=== PATIENT | female | born 1995 | race Caucasian/White ===

== ENCOUNTER 2017-04-04 10:40 | Emergency (ER) | payer OTHER ==
[~2017-04-04] VITALS: Ht 157.5 cm; Wt 59.0 kg
[~2017-04-04 10:40] MED LIST: DEPO SHOT; MIRENA1 EACH IY; PREDNISONE20 MG PO; PRENATABS FA T1 EACH PO; TYLENOL325 MG PO; VENTOLIN HFA18 GM INH; ZITHROMAX250 MG PO
[2017-04-04] MEDS ORDERED: CLOTRIMAZOLE AF15 G1 TOP (11:10)
== END 2017-04-04 11:19 | disposition home or self-care (01) ==
LOC: ED 10:40
DX: B35.9 Dermatophytosis, unspecified (principal); J45.909 Unspecified asthma, uncomplicated; F17.200 Nicotine dependence, unspecified, uncomplicated
CPT/HCPCS: 99283

== ENCOUNTER 2018-03-12 08:11 | Inpatient (IN) | payer OTHER ==
[~2018-03-12] VITALS: Ht 154.9 cm; Wt 72.0 kg
[~2018-03-12 08:11] MED LIST changes: +CLOTRIMAZOLE AF15 G1 TOP
--- NOTE | 2018-03-13 10:30 | PR ---
[facility] [address] [facility] [place] [facility] [place], [place] [address] Signed Progress Notes IP Datetime Report Generated by CPN: 03/13/2018 10:30 PROGRESS NOTES: [id number] Impression: Normal progression of labor Procedures: Artificial ROM Plan: Continue present management; Anticipate Vaginal Delivery VITAL SIGNS: [id number] Vital Signs: Reviewed; Within Normal Limits EXAM: [id number] Dilatation: 2.5 Effacement: 60 Station: -2 Uterine Contractions: 2-4 min MEMBRANES: [id number] Membrane Status: Ruptured Amniotic Fluid Color: Clear ROM Note: AROM without difficulty, large amount clear fluid Comments: Comfortable with Epidural Fetus A: [id number] FHR Baseline: 120 Variability: Moderate 6-25bpm Accelerations: 15X15 Presentation: Vertex Fetus B: [id number] Signing Physician: Leila Lynn MD Copies: ~ *Electronically Signed* 03/13/18 1030 LEILA LYNN MD PATIENT NAME: MITUL WILLIAMSON PROGRESS NOTE DATE OF : [birth year] PHYSICIAN: LEILA LYNN MD RPT #: [id number] REPORT IS CONFIDENTIAL AND NOT TO BE RELEASED WITHOUT AUTHORIZATION
--- NOTE | 2018-03-13 15:52 | PR ---
[facility] [address] [facility] [place], [place] [address] Signed Progress Notes IP Datetime Report Generated by CPN: 03/13/2018 15:52 PROGRESS NOTES: [id number] Impression: Slow Progression of Labor Procedures: Intrauterine Pressure Catheter; Scalp Electrode Plan: Continue present management; Anticipate Vaginal Delivery VITAL SIGNS: [id number] Vital Signs: Reviewed; Within Normal Limits EXAM: [id number] Dilatation: 5.0 Effacement: 90 Station: -2 Uterine Contractions: 2-4 min MEMBRANES: [id number] Membrane Status: Ruptured Amniotic Fluid Color: Clear ROM Note: AROM without difficulty, large amount clear fluid Comments: Slow progress, but continues to dilate. Getting uncomfortable. Will get Anesthesia to redose epidural, then start Pitocin augmentation. Fetus A: [id number] FHR Baseline: 140 Variability: Moderate 6-25bpm Accelerations: 15X15 Decelerations: Early; Variable Presentation: Vertex Fetus B: [id number] Signing Physician: Leila Lynn MD Copies: ~ *Electronically Signed* 03/13/18 1552 LEILA LYNN MD PATIENT NAME: MITUL WILLIAMSON PROGRESS NOTE DATE OF : 96 PHYSICIAN: LEILA LYNN MD RPT #: [id number] REPORT IS CONFIDENTIAL AND NOT TO BE RELEASED WITHOUT AUTHORIZATION
--- NOTE | 2018-03-13 15:53 | PR ---
[facility] [address] [facility] [place], [place] [address] Signed Progress Notes IP Datetime Report Generated by CPN: 03/13/2018 15:53 PROGRESS NOTES: [id number] Impression: Slow Progression of Labor Procedures: Intrauterine Pressure Catheter; Scalp Electrode Plan: Continue present management; Anticipate Vaginal Delivery VITAL SIGNS: [id number] Vital Signs: Reviewed; Within Normal Limits EXAM: [id number] Dilatation: 5.0 Effacement: 90 Station: -2 Uterine Contractions: every 3 min, 40-50 mm Hg MEMBRANES: [id number] Membrane Status: Ruptured Amniotic Fluid Color: Clear ROM Note: AROM without difficulty, large amount clear fluid Comments: Slow progress, but continues to dilate. Getting uncomfortable. Will get Anesthesia to redose epidural, then start Pitocin augmentation. Fetus A: [id number] FHR Baseline: 140 Variability: Moderate 6-25bpm Accelerations: 15X15 Decelerations: Early; Variable Presentation: Vertex Fetus B: [id number] Signing Physician: Leila Lynn MD Copies: ~ *Electronically Signed* 03/13/18 1553 LEILA LYNN MD PATIENT NAME: MITUL WILLIAMSON PROGRESS NOTE DATE OF : 96 PHYSICIAN: LEILA LYNN MD RPT #: [id number] REPORT IS CONFIDENTIAL AND NOT TO BE RELEASED WITHOUT AUTHORIZATION
--- NOTE | 2018-03-14 12:30 | PR ---
[facility] [address] [facility] [place] [address] Signed PP Progress Notes Datetime Report Generated by CPN: 03/14/2018 12:29 SUBJECTIVE: [id number] Pain: Within normal limits Nausea/Vomiting: Denies Vital Signs: [id number] Vital Signs: Reviewed; Within Normal Limits Notable Details: PP Hgb/Hct = 10.8/33.0 EXAM: [id number] Abdomen/Uterus: Normal Lochia: Normal Extremities: Normal IMPRESSION/PLAN/PROCEDURES: [id number] Impression: Normal progression Plan: Continue present management Procedures: None Progress Notes: Doing well, without complaint. Signing Physician: Leila Lynn MD Copies: ~ *Electronically Signed* 03/14/18 1229 LEILA LYNN MD PATIENT NAME: MITUL WILLIAMSON PROGRESS NOTE DATE OF : 96 PHYSICIAN: LEILA LYNN MD RPT #: [id number] REPORT IS CONFIDENTIAL AND NOT TO BE RELEASED WITHOUT AUTHORIZATION
--- NOTE | 2018-03-15 10:26 | PR ---
[facility] [address] [facility] [place] [address] Signed PP Progress Notes Datetime Report Generated by CPN: 03/15/2018 10:26 SUBJECTIVE: [id number] Pain: Within normal limits Nausea/Vomiting: Denies Vital Signs: [id number] Vital Signs: Reviewed; Within Normal Limits Notable Details: PP Hgb/Hct = 10.8/33.0 EXAM: [id number] Abdomen/Uterus: Normal Lochia: Normal Extremities: Normal IMPRESSION/PLAN/PROCEDURES: I5633024 Impression: Normal progression Plan: Discharge Procedures: None Progress Notes: Doing well, ready to go home. Signing Physician: Leila Lynn MD Copies: ~ *Electronically Signed* 03/15/18 1026 LEILA LYNN MD PATIENT NAME: MITUL WILLIAMSON PROGRESS NOTE DATE OF : 96 PHYSICIAN: LEILA LYNN MD RPT #: [id number] REPORT IS CONFIDENTIAL AND NOT TO BE RELEASED WITHOUT AUTHORIZATION
== END 2018-03-15 12:30 | disposition home or self-care (01) | DRG 775 ==
LOC: FBCO → FBC 03-13 00:20 → FBCO 03-13 08:07 → EDSTATUS 03-13 08:08 → FBC 03-13 08:09 → FBCO 03-13 12:13 → FBC 03-15 12:30
PROVIDERS: ADMIT General Practice
PROC: 10E0XZZ Delivery of Products of Conception, External Approach (ICD-10-PCS; principal; 2018-03-13)
PROC: 10907ZC Drainage of Amniotic Fluid, Therapeutic from Products of Conception, Via Natural or Artificial Opening (ICD-10-PCS; 2018-03-13)
PROC: 10H07YZ Insertion of Other Device into Products of Conception, Via Natural or Artificial Opening (ICD-10-PCS; 2018-03-13)
PROC: 00HU33Z Insertion of Infusion Device into Spinal Canal, Percutaneous Approach (ICD-10-PCS; 2018-03-13)
PROC: 3E0R3BZ Introduction of Anesthetic Agent into Spinal Canal, Percutaneous Approach (ICD-10-PCS; 2018-03-13)
PROC: 3E0P7VZ Introduction of Hormone into Female Reproductive, Via Natural or Artificial Opening (ICD-10-PCS; 2018-03-13)
PROC: 0UQGXZZ Repair Vagina, External Approach (ICD-10-PCS; 2018-03-13)
DX: O69.81X0 Labor and delivery complicated by cord around neck, without compression, not applicable or unspecified (principal); O71.4 Obstetric high vaginal laceration alone; O99.324 Drug use complicating childbirth; O76 Abnormality in fetal heart rate and rhythm complicating labor and delivery; F12.90 Cannabis use, unspecified, uncomplicated; Z87.891 Personal history of nicotine dependence; Z3A.40 40 weeks gestation of pregnancy; Z37.0 Single live birth
CPT/HCPCS: 01960; 36415; 85027; J2590; J7120

== ENCOUNTER 2019-11-27 06:31 | Inpatient (IN) | payer OTHER ==
[2019-11-27] MEDS ORDERED: PRENATAL TABLE1 EAC1 PO (08:57)
--- NOTE | 2019-11-27 11:14 | PR ---
[facility] [address] [facility] [place], [place] [address] Signed Progress Notes IP Datetime Report Generated by CPN: 11/27/2019 11:14 PROGRESS NOTES: [id number] Impression: Normal progression of labor Procedures: Artificial ROM; Sterile Vag Exam Plan: Continue present management Informed Consent Obtain: Vaginal Delivery; Risks, Benefits and Alternatives Discussed VITAL SIGNS: [id number] Vital Signs: Reviewed; Within Normal Limits EXAM: [id number] Dilatation: 9.0 Effacement: 90 Station: -2 Uterine Contractions: q 2 to 3 min MEMBRANES: [id number] Membrane Status: Intact ROM Note: AROM with large amount of heavy mec fluid Comments: Comfortable after epidural. Progressing well. Will continue. Fetus A: [id number] FHR Baseline: 125 Variability: Moderate 6-25bpm Accelerations: 15X15 Decelerations: Variable FHR Category: Category II Presentation: Vertex Comments on Fetus A: overall reassuring but will continue close observation Fetus B: [id number] Signing Physician: Inge Osorio MD Copies: ~ *Electronically Signed* 11/27/19 1114 INGE OSORIO MD PATIENT NAME: MITUL WILLIAMSON PROGRESS NOTE DATE OF : 96 PHYSICIAN: INGE OSORIO MD RPT #: [id number] REPORT IS CONFIDENTIAL AND NOT TO BE RELEASED WITHOUT AUTHORIZATION
--- NOTE | 2019-11-28 09:10 | PR ---
[facility] [address] [facility] [place], [place] [address] Signed PP Progress Notes Datetime Report Generated by ILDA: 11/28/2019 09:10 SUBJECTIVE: [id number] Pain: Within normal limits Vital Signs: [id number] Vital Signs: Reviewed; Within Normal Limits EXAM: [id number] Cardiovascular: Not Done Respiratory: Not Done Abdomen/Uterus: Abnormal Lochia: Normal Vulva/Perineum: Not Done Breasts: Not Done CVA Tenderness: Not Done Extremities: Normal Incision: Not Applicable Progress: Normal Exam Comments: Fundus firm, NT @ U-2. H/H 10.3/31.2, WBC 12.1, plat 126k IMPRESSION/PLAN/PROCEDURES: [id number] Impression: Normal progression Plan: Discharge Procedures: None Progress Notes: Doing well. She desires D/C. Signing Physician: Inge Osorio MD Copies: ~ *Electronically Signed* 11/28/19909 INGE OSORIO MD PATIENT NAME: MITUL WILLIAMSON PROGRESS NOTE DATE OF : 96 PHYSICIAN: INGE OSORIO MD RPT #: [id number] REPORT IS CONFIDENTIAL AND NOT TO BE RELEASED WITHOUT AUTHORIZATION
== END 2019-11-28 13:45 | disposition home or self-care (01) | DRG 807 ==
LOC: FBCO → FBC 08:00
PROVIDERS: ADMIT Obstetrics & Gynecology
PROC: 10E0XZZ Delivery of Products of Conception, External Approach (ICD-10-PCS; principal; 2019-11-27)
PROC: 0UQMXZZ Repair Vulva, External Approach (ICD-10-PCS; 2019-11-27)
PROC: 10907ZC Drainage of Amniotic Fluid, Therapeutic from Products of Conception, Via Natural or Artificial Opening (ICD-10-PCS; 2019-11-27)
PROC: 00HU33Z Insertion of Infusion Device into Spinal Canal, Percutaneous Approach (ICD-10-PCS; 2019-11-27)
PROC: 3E0R3BZ Introduction of Anesthetic Agent into Spinal Canal, Percutaneous Approach (ICD-10-PCS; 2019-11-27)
DX: O77.0 Labor and delivery complicated by meconium in amniotic fluid (principal); Z37.0 Single live birth; Z3A.40 40 weeks gestation of pregnancy; O76 Abnormality in fetal heart rate and rhythm complicating labor and delivery; O71.82 Other specified trauma to perineum and vulva; Z87.891 Personal history of nicotine dependence
CPT/HCPCS: 01960; 36415; 85027; A9270; J2550; J2795; J3010; J7121

== ENCOUNTER 2021-11-07 09:29 | Emergency (ER) | payer OTHER ==
[~2021-11-07] VITALS: Ht 154.9 cm; Wt 52.2 kg
[~2021-11-07 09:29] MED LIST changes: +PRENATAL TABLE1 EAC1 PO
[2021-11-07] MEDS ORDERED: ETONOGESTREL-E1 EACH VG (09:59)
[2021-11-07] MEDS ORDERED: TYLOPHEN500 MG PO (10:00)
[2021-11-07] MEDS ORDERED: NAPROSYN500 MG PO (10:59)
== END 2021-11-07 11:14 | disposition home or self-care (01) ==
LOC: ED 09:29
DX: S80.01XA Contusion of right knee, initial encounter (principal); S60.212A Contusion of left wrist, initial encounter; R51.9 Headache, unspecified; R68.84 Jaw pain; H93.12 Tinnitus, left ear; Y04.8XXA Assault by other bodily force, initial encounter; J45.909 Unspecified asthma, uncomplicated; Z79.899 Other long term (current) drug therapy
CPT/HCPCS: 99283

== ENCOUNTER 2023-10-07 00:02 | Inpatient (IN) | payer OTHER ==
[~2023-10-07 00:02] MED LIST changes: +CALCIUM CARBONATE 500 MG CHEW PO PRN; +ETONOGESTREL-E1 EACH VG; +LACTATED RINGER'S 1,000 ML IV SCH; +MAGNESIUM HYDROXIDE/AL HYDROX 30 ML CUP PO PRN; +NAPROSYN500 MG PO; +PENICILLIN G POTASSIUM 5 MUNITS/110 ML PIGGYBACK IV ONE; +TYLOPHEN500 MG PO; +miSOPROStoL 25 MCG TAB PV SCH
[2023-10-07] MEDS ORDERED: LACTATED RINGER'S 1,000 ML IV PRN (00:15)
[2023-10-07] MEDS ORDERED: ondansetron HCL 4 MG/2 ML VIAL IV PRN (00:15)
[2023-10-07] MEDS ORDERED: OXYTOCIN/DEXTROSE 5% 20 UNITS/100 ML BAG IV SCH (00:15)
[2023-10-07 00:39] LABS: HEMATOCRIT 35.6 % (35.0-50.0); MCH 29.1 (27-36); MCHC 33.7 g/dl (30-36); MCV 86.6 fl (81-99); RBC 4.11 M/ul (4.3-5.7)
[2023-10-07 00:55] LABS: AMPHETAMINES, URINE NEGATIVE (NEGATIVE); BARBITURATES, URINE NEGATIVE (NEGATIVE); BENZODIAZEPINE, URINE NEGATIVE (NEGATIVE); BUPRENORPHINE, URINE NEGATIVE (NEGATIVE); CANNABINOID, URINE NEGATIVE (NEGATIVE); COCAINE, URINE NEGATIVE (NEGATIVE); ECSTASY, URINE NEGATIVE (NEGATIVE); FENTANYL, URINE NEGATIVE (NEGATIVE); METHADONE, URINE NEGATIVE (NEGATIVE); OPIATES, URINE NEGATIVE (NEGATIVE); OXYCODONE, URINE NEGATIVE (NEGATIVE); PHENCYCLIDINE, URINE NEGATIVE (NEGATIVE)
[2023-10-07 01:14] LABS: ABO A; ANTIBODY SCREEN NEGATIVE; RH POSITIVE
[2023-10-07] MEDS ORDERED: PENICILLIN G POTASSIUM 2.5 MUNITS in DEXTROSE 5% 100 ML IV SCH (04:00)
[2023-10-07] MEDS ORDERED: PENICILLIN G POTASSIUM 5 MUNITS/10 ML VIAL ONE (04:49)
[2023-10-07] MEDS ORDERED: miSOPROStoL 25 MCG TAB PV SCH (06:30)
[2023-10-07] MEDS ORDERED: ROPIVACAINE 0.2% 200 ML BAG ONE (14:09)
[2023-10-07] MEDS ORDERED: LACTATED RINGER'S 500 ML IV PRN (16:15)
[2023-10-07] MEDS ORDERED: ROPIVACAINE 0.2% 200 ML BAG EPIDURAL SCH (16:15)
[2023-10-07] MEDS ORDERED: LACTATED RINGER'S 2,000 ML IV ONE (16:15)
[2023-10-07] MEDS ORDERED: ePHEDrine sulfate 5 MG/ML SYRINGE IV PRN (16:15)
--- NOTE | 2023-10-07 17:31 | PR ---
[facility] [address] [facility] [place], [place] [address] Signed Progress Notes IP Datetime Report Generated by CPN: 10/07/2023 17:31 PROGRESS NOTES: [id number] Impression: Normal Progression of Labor; Reassuring Heart Rate Plan: Continue Present Management Informed Consent Obtain: Vaginal Delivery VITAL SIGNS: [id number] Vital Signs: Reviewed; Within Normal Limits EXAM: [id number] Dilatation: 4.0 Effacement: 75 Station: -2 Contractions: q 2-4 min MEMBRANES: [id number] Comments: Pt seen and evaluated. Doing very well. Comfortable w/ epidural. SROM for large amount of clear fluid. Discussed anticipated course of labor / delivery. All questions answered. FETUS A: [id number] FHR Baseline: 125 Variability: Moderate 6-25bpm Accelerations: 15X15 Decelerations: None FHR Category: Category I Presentation: Vertex Comments on Fetus A: No evidence of metabolic acidosis FETUS B: [id number] Signing Physician: Grecia Fleming DO Copies: ~ *Electronically Signed* 10/07/23 4806 GRECIA FLEMING (YRN) DO PATIENT NAME: MITUL WILLIAMSON RECORD #: [id number] PROGRESS NOTE DATE OF : 96 PHYSICIAN: GRECIA FLEMING (YRN) DO RPT #: [id number] REPORT IS CONFIDENTIAL AND NOT TO BE RELEASED WITHOUT AUTHORIZATION
--- NOTE | 2023-10-07 21:13 | PR ---
[facility] [address] [place], [place] [address] Signed Progress Notes IP Datetime Report Generated by CPN: 10/07/2023 21:13 PROGRESS NOTES: [id number] Impression: Normal Progression of Labor; Reassuring Heart Rate Procedures: Intrauterine Pressure Catheter; Scalp Electrode; Sterile Vag Exam Plan: Continue Present Management; Anticipate Vaginal Delivery Informed Consent Obtain: Vaginal Delivery; Risks, Benefits and Alternatives Discussed Other Informed Consents: Reviewed hx of dystocia, EFW, and pt desires to proceed with VITAL SIGNS: [id number] Vital Signs: Reviewed; Within Normal Limits EXAM: [id number] Dilatation: 7.0 Effacement: 80 Station: -2 Contractions: q 2-3 min MEMBRANES: [id number] Comments: Pt seen and examined. Doing well. Comfortable w/ contractions w/ epidural. Unable to feel and contractions and concerned about ability to push well. Discussed IUPC and pt agrees. FSE placed per RN request to assist monitoring during position changes. Discussed anticipated . All questions answered. FETUS A: [id number] FHR Baseline: 125 Variability: Moderate 6-25bpm Accelerations: 15X15 Decelerations: None FHR Category: Category I Presentation: Vertex Comments on Fetus A: No evidence of metabolic acidosis FETUS B: [id number] Signing Physician: Grecia Fleming DO Copies: ~ *Electronically Signed* 10/07/23 2025 GRECIA FLEMING (YRN) DO PATIENT NAME: MITUL WILLIAMSON PROGRESS NOTE DATE OF : 96 PHYSICIAN: GRECIA FLEMING (JD) DO RPT #: [id number] REPORT IS CONFIDENTIAL AND NOT TO BE RELEASED WITHOUT AUTHORIZATION
[2023-10-07] MEDS ORDERED: TRANEXAMIC ACID IN NACL,ISO-OS 100 ML IV ONE (22:48)
[2023-10-07] MEDS ORDERED: BENZOCAINE/LANOLIN/ALOE VERA 60 ML AEROSOL TOP PRN (23:15)
[2023-10-07] MEDS ORDERED: OXYCODONE/APAP 5/325 TAB PO PRN (23:15)
[2023-10-07] MEDS ORDERED: CALCIUM CARBONATE 500 MG CHEW PO PRN (23:15)
[2023-10-07] MEDS ORDERED: HYDROCODONE/ACETA 5/325 TAB PO PRN (23:15)
[2023-10-07] MEDS ORDERED: HYDROCORTISONE ACETATE 25 MG SUPP PR PRN (23:15)
[2023-10-07] MEDS ORDERED: MAGNESIUM HYDROXIDE/AL HYDROX 30 ML CUP PO PRN (23:15)
[2023-10-07] MEDS ORDERED: OXYTOCIN/0.9 % SODIUM CHLORIDE 500 ML IV SCH (23:15)
[2023-10-07] MEDS ORDERED: OXYCODONE HCL 5 MG TAB PO PRN (23:15)
[2023-10-07] MEDS ORDERED: ACETAMINOPHEN 325 MG TAB PO PRN (23:15)
[2023-10-07] MEDS ORDERED: MAGNESIUM HYDROXIDE 30 ML UDC PO PRN (23:15)
[2023-10-07] MEDS ORDERED: WITCH HAZEL/GLYCERIN 1 EA PAD TOP PRN (23:15)
[2023-10-08 05:26] LABS: HEMATOCRIT 35.6 % (35.0-50.0); HEMOGLOBIN 11.9 g/dL (12.0-18.0); MCH 28.9 (27-36); MCHC 33.5 g/dl (30-36); MCV 86.2 fl (81-99); RBC 4.13 M/ul (4.3-5.7); RDW 13.9 (10.5-15.0)
[2023-10-08] MEDS ORDERED: OXYTOCIN/DEXTROSE 5% 20 UNITS/100 ML BAG IV SCH (07:00)
--- NOTE | 2023-10-08 07:59 | PR ---
[facility] [address] [place], [place] [address] Signed PP Progress Notes Datetime Report Generated by CPN: 10/08/2023 07:59 SUBJECTIVE: [id number] Pain: Within Normal Limits Nausea/Vomiting: Denies Flatus: Yes Bowel Movement: Yes Vital Signs: [id number] Vital Signs: Reviewed; Within Normal Limits Cardiovascular: Not Done Respiratory: Not Done Abdomen/Uterus: Normal Lochia: Normal Vulva/Perineum: Not Done Breasts: Not Done CVA Tenderness: Not Done Extremities: Normal Incision: Not Applicable Progress: Normal IMPRESSION/PLAN/PROCEDURES: [id number] Impression: Normal Progression Plan: Continue Present Management Procedures: None Progress Notes: S: 27 yo s/p vaginal delivery. PPD #1. Doing well. Denies NATARAJAN, CP, SOB, F/C, N/V, RUQ pain, changes in vision, vaginal discharge. Tolerating regular diet, ambulating, voiding on own, pain controlled. O: AFVSS Abd; Soft, non-tender. Fundus firm, two fingers below umbilicus. Musc: ARNOLD. No C/C/E. A/P: S: 27 yo s/p vaginal delivery. PPD #1. Doing well. Likely discharge home tomorrow AM due to late delivery. Signing Physician: Kennedi Schaeffer MD Copies: ~ *Electronically Signed* 10/08/23 0759 KENNEDI SCHAEFFER MD PATIENT NAME: MITUL WILLIAMSON PROGRESS NOTE DATE OF : 96 PHYSICIAN: KENNEDI SCHAEFFER MD RPT #: [id number] REPORT IS CONFIDENTIAL AND NOT TO BE RELEASED WITHOUT AUTHORIZATION
[2023-10-08] MEDS ORDERED: SENNOSIDES/DOCUSATE 1 EA TAB PO SCH (09:00)
--- NOTE | 2023-10-09 10:48 | PR ---
[facility] [address] [place], [place] [address] Signed PP Progress Notes Datetime Report Generated by CPN: 10/09/2023 10:48 SUBJECTIVE: [id number] Pain: Within Normal Limits Nausea/Vomiting: Denies Flatus: Yes Bowel Movement: No Vital Signs: M5000823 Vital Signs: Reviewed; Within Normal Limits Cardiovascular: Not Done Respiratory: Not Done Abdomen/Uterus: Normal Lochia: Normal Vulva/Perineum: Not Done Breasts: Not Done CVA Tenderness: Not Done Extremities: Normal Incision: Not Applicable Progress: Normal IMPRESSION/PLAN/PROCEDURES: [id number] Impression: Normal Progression Plan: Discharge Procedures: None Progress Notes: S: 27 yo s/p vaginal delivery. PPD#2. Doing well. Denies NATARAJAN, CP, SOB, F/C, N/V, RUQ pain, changes in vision. Tolerating regular diet, ambulating, voiding on own, pain controlled. Feels like she is ready to get home today. O: AFVSS Abd: Soft, non-tender. Fundus firm, below umbilicus. Musc: ARNOLD. No C/C/E. A/P: 27 yo s/p vaginal delivery. PPD#2. Doing well. Meeting all hospital milestones. Will discharge home today. Signing Physician: Kennedi Schaeffer MD Copies: ~ *Electronically Signed* 10/09/23 1048 KENNEDI SCHAEFFER MD PATIENT NAME: MITUL WILLIAMSON PROGRESS NOTE DATE OF : 96 PHYSICIAN: KENNEDI SCHAEFFER MD RPT #: [id number] REPORT IS CONFIDENTIAL AND NOT TO BE RELEASED WITHOUT AUTHORIZATION
== END 2023-10-09 11:55 | disposition home or self-care (01) | DRG 807 ==
LOC: FBC 00:02
PROVIDERS: ADMIT Obstetrics & Gynecology; ATTEND Obstetrics & Gynecology
PROC: 10E0XZZ Delivery of Products of Conception, External Approach (ICD-10-PCS; principal; 2023-10-07)
PROC: 3E0R3BZ Introduction of Anesthetic Agent into Spinal Canal, Percutaneous Approach (ICD-10-PCS; 2023-10-07)
PROC: 00HU33Z Insertion of Infusion Device into Spinal Canal, Percutaneous Approach (ICD-10-PCS; 2023-10-07)
PROC: 10H07YZ Insertion of Other Device into Products of Conception, Via Natural or Artificial Opening (ICD-10-PCS; 2023-10-07)
DX: O99.824 Streptococcus B carrier state complicating childbirth (principal); Z37.0 Single live birth; Z3A.39 39 weeks gestation of pregnancy; O76 Abnormality in fetal heart rate and rhythm complicating labor and delivery; O69.81X0 Labor and delivery complicated by cord around neck, without compression, not applicable or unspecified
CPT/HCPCS: 01960; 36415; 80307; 85027; 86850; 86900; 86901; A9270; J2540; J2590